=== PATIENT | male | born 1955 | race Two or more races ===

== ENCOUNTER 2022-01-14 05:56 | Day surgery (SDC) | payer MEDICAID, OTHER ==
[2022-01-09 15:29] LABS: ALBUMIN 4.1 G/DL (3.4-5.0); ALBUMIN/GLOBULIN RATIO 1.1 (1.1-1.5); ALKALINE PHOSPHATASE 136 IU/L (46-116); BASOPHILS % (AUTO) 0.5 % (0-1); BLOOD UREA NITROGEN 11 MG/DL (7-18); BUN/CREATININE RATIO 10.6 (5.4-32.0); CALCIUM 9.3 MG/DL (8.5-10.1); CHLORIDE 104 MMOL/L (99-107); CREATININE 1.04 MG/DL (0.60-1.10); EOSINOPHILS % (AUTO) 0.6 % (0-6); LYMPHOCYTES # (AUTO) 1.8 X10'3 (1.1-4.8); LYMPHOCYTES % (AUTO) 25.7 % (21-51); MEAN CORPUSCULAR HGB CONC 34.7 g/dL (33.0-36.5); MEAN CORPUSCULAR VOLUME 89.4 FL (78-98); MEAN PLATELET VOLUME 7.9 FL (7.4-10.4); MONOCYTES # (AUTO) 0.7 X10'3 (0-0.9); MONOCYTES % (AUTO) 10.3 % (2-12); NEUTROPHILS # (AUTO) 4.4 X10'3 (1.8-7.7); NEUTROPHILS % (AUTO) 62.9 % (42-75); PRE OP ALT 57 U/L (30-65); PRE OP ANION GAP 7 (8-16); PRE OP AST 33 U/L (10-37); PRE OP BILIRUB, TOTAL 0.5 MG/DL (0.0-1.0); PRE OP GLUCOSE 168 MG/DL (70-104); PRE OP HEMATOCRIT 48.9 % (42.0-52.0); PRE OP PLATELET COUNT 260 X10'3 (140-440); PRE OP POTASSIUM 3.9 MMOL/L (3.4-5.1); PRE OP SODIUM 139 MMOL/L (135-145); RED BLOOD COUNT 5.48 X10'6 (4.70-6.10); RED CELL DISTRIBUTION WIDTH 14.7 % (11.5-14.5); TOTAL PROTEIN 7.9 G/DL (6.4-8.2); eGFR 72 ML/MIN
[2022-01-14] VITALS (8 sets, daily range): BP systolic 113–139; BP diastolic 75–92
[~2022-01-14] VITALS: Ht 165.1 cm; Wt 101.0 kg
[~2022-01-14 05:56] MED LIST: INSU100V9 SQ; ceFAZolin inj. 2,000 MG in dextrose 5%-water 100 ML IV ONE; famotidine 20mg tablet PO ONE; ringers solution, lacted 1,000 ML IV SCH
[2022-01-14] MEDS ORDERED: BUPIVAcaine/PF 2.5mg/ml (0.25%) 10ml vial ONE (06:43)
[2022-01-14] MEDS ORDERED: LIDOcaine 1% 30ml preserv. free vial ONE (07:21)
[2022-01-14] MEDS ORDERED: fentaNYL/PF 50MCG/1 ML 2ML syringe ONE (08:21)
[2022-01-14] MEDS ORDERED: midazolam 1 mg/ML 2ml injection ONE (08:21)
[2022-01-14] MEDS ORDERED: ketorolac trometh. 30mg/ml inj. ONE (08:55)
--- NOTE | 2022-01-14 09:05 | NUR ---
Received from OR via [facility], accompanied by Anesthesiologist DR HINOJOSA and report given by Anesthesiologist AND HOSPITALIST PROGRAM DIRECTOR. PT AWAKE, DENIES PAIN. LEFT HAND W/BIAS WRAP COVERING INCISION CDI, FINGERS PWD, INTEGRATION AIDE 1-2 SECONDS. Addendum: 01/14/22 at 0930 by Latesha Moreno RN Amended: Links added.
--- NOTE | 2022-01-14 10:15 | NUR ---
PT UP AND ABLE TO AMBULATE SAFELY, PT'S GAIT OFF, BUT HE STATES HE HAS A DISABILITY. D/C INSTRUCTIONS GIVEN AND GONE OVER W/PT AND PTS CAREGIVER WHO VERBALIZED UNDERSTANDING. PT D/CD TO HOME VIA W/C TO PRIVATE VEHICLE W/O INCIDENT. Addendum: 01/14/22 at 1032 by Latesha Moreno RN Amended: Links added.
== END 2022-01-14 10:15 | disposition home or self-care (01) ==
LOC: PAS 05:56
PROVIDERS: ATTEND Orthopaedic Surgery Hand Surgery
DX: G56.02 Carpal tunnel syndrome, left upper limb (principal); M65.332 Trigger finger, left middle finger; M65.342 Trigger finger, left ring finger; M65.312 Trigger thumb, left thumb; M65.352 Trigger finger, left little finger; M65.322 Trigger finger, left index finger; J44.9 Chronic obstructive pulmonary disease, unspecified; G47.30 Sleep apnea, unspecified; F41.8 Other specified anxiety disorders; Z79.899 Other long term (current) drug therapy; Z98.890 Other specified postprocedural states; Z88.8 Allergy status to other drugs, medicaments and biological substances; Z20.822 Contact with and (suspected) exposure to COVID-19
CPT/HCPCS: 26055; 29848; 36415; 80053; 82948; 85025; 93005; J0690; J1885; J2250; J3010; J3490; J7030; J7060; J7120; Z7506; Z7512; A4215; A6449; A7000

== ENCOUNTER 2023-05-16 07:53 | Outpatient (CLI) | payer MEDICAID ==
[~2023-05-16] VITALS: Ht 165.1 cm; Wt 108.9 kg
[~2023-05-16 07:53] MED LIST changes: -ceFAZolin inj. 2,000 MG in dextrose 5%-water 100 ML IV ONE; -famotidine 20mg tablet PO ONE; -ringers solution, lacted 1,000 ML IV SCH
[2023-05-16 08:09] LABS: ABG BASE EXCESS -2.2 mmol/L (-2.0-2.0); ABG HCO3 22.3 mmol/L (22.0-26.0); ABG OXYGEN SATURATION 96.6 % (94-97); ABG PCO2 (T) 38.2 mmHg (35.0-48.0); ABG PH (T) 7.385 (7.340-7.440); ABG PO2 (T) 81.4 mmHg (75.0-100.0); ALLEN'S TEST POSITIVE; FCOHb 0.6 % (0.0-3.9); FHHb 3.4 % (0.0-5.0); FMetHb 0.3 % (0.0-1.5); FO2Hb 95.7 % (94-97); MODE ROOM AIR; TOTAL HEMOGLOBIN 17.1 G/dl (14.0-17.9)
[2023-05-16] MEDS: albuterol 2.5 MG/3 ML nebule NEB PRN (08:39)
[2023-05-16 08:44] VITALS: PULSE 64; RESP 18; O2SAT 96
== END 2023-05-16 23:59 | disposition home or self-care (01) ==
LOC: RT 07:53
PROVIDERS: ATTEND Family Medicine
DX: J45.909 Unspecified asthma, uncomplicated (principal); R06.02 Shortness of breath
CPT/HCPCS: 36600; 82803; 85018; 94060; 94727; 94729; 94760; A6222